=== PATIENT | female | born 1980 | race Caucasian/White ===

== ENCOUNTER 2017-05-09 19:01 | Emergency (ER) | payer OTHER ==
[2017-05-09 19:08] VITALS: BP 136/76; PULSE 81; TEMP 98; BMI 38.2
--- NOTE | 2017-05-09 20:46 | PDOC ---
History of Present Illness - General History Source: Patient Exam Limitations: No Limitations - History of Present Illness Initial Comments: 05/09/17 21:13 The patient is a 36-year-old female with a significant past medical history of gallstones, and presents to the emergency department with upper abdominal pain, nausea, and vomiting earlier today. She reports the abdominal pain was located across the upper abdomen, left more than right. She states the pain was severe, with associated episodes of nausea, non-bloody, non-bilious vomiting, and posterior shoulder pain. Upon interview, she states she does not have pain anymore but notes feeling gassy and bloated. She reports she has passed gas with moderate relief of pain. Patients last episode of pain secondary to gallstones was 2 years ago when she was . The patient denies chest pain, shortness of breath, headache and dizziness. The patient denies fever, chills, diarrhea and constipation. The patient denies dysuria, frequency, urgency and hematuria. Allergies: NKDA Past Surgical History: None reported Social History: No toxic habits reported PCP: Dr. Jennifer Veras <Elin Abrams - Last Filed: 05/09/17 21:12> <Bren Lynn - Last Filed: 05/09/17 22:46> - General Chief Complaint: Pain, Acute Stated Complaint: UPPER ABDOMINAL PAIN Time Seen by Provider: 05/09/17 20:43 Past History <Elin Abrams - Last Filed: 05/09/17 21:12> - Past Medical History Anemia: No Asthma: No Cancer: No Cardiac Disorders: No CVA: No COPD: No CHF: No Dementia: No Diabetes: No GI Disorders: Yes (GALLSTONES) Disorders: No HTN: No Hypercholesterolemia: No Liver Disease: No Seizures: No Thyroid Disease: No - Surgical History Abdominal Surgery: No Appendectomy: No Cardiac Surgery: No Cholecystectomy: No Lung Surgery: No Neurologic Surgery: No Orthopedic Surgery: No - Reproductive History (#): 2 Spontaneous : 1 - Immunization History Immunization Up to Date: Yes - Suicide/Smoking/Psychosocial Hx Smoking Status: No Smoking History: Never smoked Have you smoked in the past 12 months: No Number of Cigarettes Smoked Daily: 0 Hx Alcohol Use: No Drug/Substance Use Hx: No Substance Use Type: None Hx Substance Use Treatment: No <Bren Lynn - Last Filed: 05/09/17 22:46> - Past Medical History Allergies/Adverse Reactions: Allergies Allergy/AdvReac Type Severity Reaction Status Date / Time No Known Allergies Allergy Verified 05/09/17 19:08 Home Medications: Ambulatory Orders NK [No Known Home Medication] 11/23/15 Review of Systems - Review of Systems Able to Perform ROS?: Yes Comments:: 05/09/17 21:13 GENERAL/CONSTITUTIONAL: No fever or chills. No weakness. HEAD, EYES, EARS, NOSE AND THROAT: No change in vision. No ear pain or discharge. No sore throat. CARDIOVASCULAR: No chest pain or shortness of breath. RESPIRATORY: No cough, wheezing, or hemoptysis. GASTROINTESTINAL: (+) Abdominal pain. (+) Nausea. (+) Vomiting. No diarrhea or constipation. GENITOURINARY: No dysuria, frequency, or change in urination. MUSCULOSKELETAL: No neck or back pain. SKIN: No rash NEUROLOGIC: No headache, vertigo, loss of consciousness, or change in strength/ sensation. ENDOCRINE: No increased thirst. No abnormal weight change. HEMATOLOGIC/LYMPHATIC: No anemia, easy bleeding, or history of blood clots. ALLERGIC/IMMUNOLOGIC: No hives or skin allergy. <Elin Abrams - Last Filed: 05/09/17 21:12> *Physical Exam - Vital Signs Last Vital Signs Temp Pulse Resp BP Pulse Ox 98.0 F 81 26 H 136/76 100 05/09/17 19:05 05/09/17 19:05 05/09/17 19:05 05/09/17 19:05 05/09/17 19:05 - Physical Exam Comments: 05/09/17 21:13 GENERAL: Awake, alert, and fully oriented, in no acute distress HEAD: No signs of trauma EYES: PERRLA, EOMI, sclera anicteric, conjunctiva clear ENT: Auricles normal inspection, hearing grossly normal, nares patent, oropharynx clear without exudates. Moist mucosa NECK: Normal ROM, supple, no lymphadenopathy, JVD, or masses LUNGS: Breath sounds equal, clear to auscultation bilaterally. No wheezes, and no crackles HEART: Regular rate and rhythm, normal S1 and S2, no murmurs, rubs or gallops ABDOMEN: Soft, nontender, normoactive bowel sounds. No guarding, no rebound. No masses EXTREMITIES: Normal range of motion, no edema. No clubbing or cyanosis. No cords, erythema, or tenderness NEUROLOGICAL: Cranial nerves II through XII grossly intact. Normal speech, normal gait SKIN: Warm, Dry, normal turgor, no rashes or lesions noted. <Abrams,Elin - Last Filed: 05/09/17 21:12> - Vital Signs Last Vital Signs Temp Pulse Resp BP Pulse Ox 98.0 F 81 26 H 136/76 100 05/09/17 19:05 05/09/17 19:05 05/09/17 19:05 05/09/17 19:05 05/09/17 19:05 <Bren Lynn - Last Filed: 05/09/17 22:46> Procedures - Bedside Ultrasound Bedside Ultrasound: Gallbladder Remarks: 05/09/17 21:05 +gallstones, no gallbladder wall thickening (gb wall was 0.11cm), no pericholecystic fluid, neg sono murphys <Bren Lynn - Last Filed: 05/09/17 22:46> ED Treatment Course - LABORATORY CBC & Chemistry Diagram: 05/09/17 21:10 05/09/17 21:10 <Bren Lynn - Last Filed: 05/09/17 22:46> Medical Decision Making - Medical Decision Making 05/09/17 21:05 a/p: 36yo female with RUQ pain after eating dinner -hx of gallstones, suspect biliary colic. Pain resolved at this time -bedside ultrasound shows gallstones, but no acute addi -will check labs -pt with gas pain now, will give simethicone and reassess -no n/v at this time. no pain 05/09/17 22:41 re-eval: no abd pain. abd soft. discussed lab work with the patient. States she did drink a few beers over the weekend, but doesn't drink regularly. Discussed elevated WBC count and abnl lab findings. Elevated LFTs and alk phos. Discussed need for patient to have further eval and CT imaging, given bedside ultrasound shows stones but no acute addi. Pt states she cannot stay for further eval. Pt has kids at home and doesn 't have care for a further ED workup. Pt states she will call Dr. Veras for a follow up appt tomorrow. Discussed with the patient she will need to sign out AMA. Pt understands all lab results and need for further workup. Will give both GI and Sx for follow up along with Dr. Veras. Discussed all reasons to stay for further workup. Pt states she wants to sign out AMA. 05/09/17 22:43 Note: The patient insists on leaving the emergency dept and is signing out against medical advice. The patient understands the risks and complications that may result from the refusal of medical care and admission which includes and permanent disability. The patient has the mental capacity of understanding the risks of refusing care and is capable of making an informed decision. The patient was instructed to return to the emergency department should [] change [] mind regarding medical care or should [] condition worsen. The patient signed the Against Medical Advice form. <Bren Lynn - Last Filed: 05/09/17 22:46> *DC/Admit/Observation/Transfer - Attestations Scribe Attestion: 05/09/17 21:13 Documentation prepared by Elin Abrams, acting as medical illustrator for Bren Lynn DO. <Elin Abrams - Last Filed: 05/09/17 21:12> - Discharge Dispostion Admit: No - Attestations Physician Attestion: 05/09/17 22:46 I, Dr. Bren Lynn DO, attest that this document has been prepared under my direction and personally reviewed by me in its entirety. I further attest, that it accurately reflects all work, treatment, procedures and medical decision -making performed by me. <Bren Lynn - Last Filed: 05/09/17 22:46> Diagnosis at time of Disposition: Abdominal pain, Cholelithiasis, Nausea & vomiting, Leukocytosis - Discharge Dispostion Disposition: AGAINST MEDICAL ADVICE Condition at time of disposition: Unchanged/Unknown - Referrals Referrals: Jennifer Veras MD [Primary Care Provider] - Michele Meyers MD [Staff Physician] - Fuad Noble MD [Staff Physician] - - Patient Instructions Printed Discharge Instructions: DI for Abdominal Pain-Adult, Nausea and Vomiting-Adult, DI for Gallstones Additional Instructions: Please return to the ED tomorrow. Please follow up with Dr. Veras tomorrow if you don't return to the ED. Please also follow up with general surgery and GI for further eval. Please have your labs repeated. You had elevated LFTs and an elevated WBC count. Please return to the ED [facility] for further eval.
[2017-05-09] MEDS ORDERED: SIMETHICONE 80 MG TAB.CHEW (FP) PO ONE (20:53)
[2017-05-09 21:21] LABS: BASOPHIL 0.4 % (0-2.0); EOSINOPHIL 0.5 % (0-4.5); MCH 24.6 pg (25.7-33.7); MCHC 32.4 g/dl (32.0-36.0); MEAN PLT VOLUME 8.1 fl (7.5-11.1); NEUTROPHILS 85.7 % (42.8-82.8); PLATELET COUNT 345 K/MM3 (134-434); RDW 15.1 % (11.6-15.6); WHITE BLOOD COUNT 19.4 K/mm3 (4.0-10.0)
[2017-05-09 21:51] LABS: ALBUMIN 3.9 g/dl (3.4-5.0); ANION GAP 12 (8-16); BILIRUBIN,TOTAL 0.3 mg/dL (0.2-1.0); CALCIUM 8.8 mg/dL (8.5-10.1); CO2 22 mmol/L (21-32); CREATININE 0.9 mg/dL (0.55-1.02); GLUCOSE,RANDOM 131 mg/dL (74-106); SGPT/ALT 80 U/L (12-78); TOT PROT 7.7 g/dl (6.4-8.2)
[2017-05-09 21:54] LABS: ALK PHOS 166 U/L (45-117)
[2017-05-09 21:55] LABS: SGOT/AST 135 U/L (15-37)
== END 2017-05-09 23:16 | disposition home or self-care (01) ==
LOC: JER 19:01
DX: K80.20 Calculus of gallbladder without cholecystitis without obstruction (principal); D72.829 Elevated white blood cell count, unspecified
CPT/HCPCS: 36415; 80053; 83690; 84702; 85025; 99281-25

== ENCOUNTER 2018-03-20 12:45 | Emergency (ER) | payer OTHER ==
--- NOTE | 2018-03-20 12:53 | PDOC ---
History of Present Illness - General Chief Complaint: Pain Stated Complaint: LEFT ELBOW PAIN X 1 WEEK - History of Present Illness Initial Comments: Kimberly Grove is a 37yo otherwise healthy woman who presents with one week of worsening left elbow stiffness and pain. She reports that she has had left elbow pain for one week. She states that for the first 2-3 days it was merely uncomfortable, but starting on had worsened to the point that she had difficulty moving her left arm. The pain has continued to worsen over the past several days. At this point, Ms Grove feels that her left elbow ROM is significantly limited by pain. She has tried 400mg ibuprofen at home without improvement, though she does notice a reduction in pain and stiffness by using Icy-Hot patches and soaking her elbow in hot water. Ms Grove does not remember any significant injury, though she does feel that she may have hit her elbow against the wall while sleeping last week. She has not noticed any visible injury, swelling, redness, or bruising. She denies fevers or chills, has not had a previous elbow injury or elbow surgery, and has no family history of RA or other joint disease. Past History - Past Medical History Allergies/Adverse Reactions: Allergies Allergy/AdvReac Type Severity Reaction Status Date / Time No Known Allergies Allergy Verified 03/20/18 12:52 Home Medications: Ambulatory Orders NK [No Known Home Medication] 11/23/15 Anemia: No Asthma: No Cancer: No Cardiac Disorders: No CVA: No COPD: No CHF: No Dementia: No Diabetes: No GI Disorders: Yes (GALLSTONES) Disorders: No HTN: No Hypercholesterolemia: No Liver Disease: No Seizures: No Thyroid Disease: No - Surgical History Abdominal Surgery: No Appendectomy: No Cardiac Surgery: No Cholecystectomy: No Lung Surgery: No Neurologic Surgery: No Orthopedic Surgery: No - Reproductive History (#): 2 Spontaneous : 1 - Immunization History Immunization Up to Date: Yes - Suicide/Smoking/Psychosocial Hx Smoking Status: No Smoking History: Never smoked Have you smoked in the past 12 months: No Number of Cigarettes Smoked Daily: 0 Hx Alcohol Use: No Drug/Substance Use Hx: No Substance Use Type: None Hx Substance Use Treatment: No Review of Systems - Review of Systems Comments:: General: No fevers, no chills, no weight or appetite change, no malaise HEENT: No changes in vision, no changes in hearing, no congestion, no sore throat CV: No chest pain, no palpitations, no LE edema Pulm: No SOB, no cough, no wheezing GI: No nausea or vomiting, no change in bowel habits, no melena : No frequency, no urgency, no dysuria Musc: No back pain, no joint swelling, no recent injury. See HPI Skin: No rash, no lesions, no erythema Endo: No excessive thirst, no heat/cold intolerance Heme: No unusual bruising or bleeding, no swollen glands Neuro: No syncope, no numbness/tingling, no focal weakness Vasc: No claudication Psych: No recent change in mood, no SI or HI *Physical Exam - Physical Exam Comments: General: Comfortable, no acute distress HEENT: PERRL, EOMI, MMM, voice normal, normal neck ROM, no LAD Cards: RRR, no murmur appreciated Pulm: Comfortable on room air, clear to auscultation bilaterally Abd: Soft, nontender, nondistended Ext: Atraumatic. No LE edema. Strength 5/5 and equal bilaterally. LUE with no erythema, edema, or ecchymosis. Passive ROM at left elbow intact, but active ROM limited by pain. TTP at posterior L elbow just proximal to joint. No tenderness along radial head or other bony prominences. Vasc: Extremities WWP. Palpable radial and pedal pulses bilaterally Neuro: A&Ox3, CN grossly intact, normal speech, motor/sensory grossly intact and symmetric Psych: Mood appropriate to situation Medical Decision Making - Medical Decision Making 03/20/18 14:09 Kimberly Grove is an otherwise healthy 37yo woman who presents with worsening left elbow pain and stiffness for one week. - No history of trauma, surgery, prior injury, or family history of joint disease. Low suspicion for fracture, but will rule out with xray - No swelling, redness, significant tenderness, fevers/chills that suggest infection - Most likely musculoskeletal in nature - no s/s suggesting more serious pathology. 03/20/18 14:58 - Xray suggests an old avulsion fracture. No acute fracture noted - Will discharge home with sling, NSAIDs, ortho follow up - Discussed with Ms Grove, agrees with this plan *DC/Admit/Observation/Transfer Diagnosis at time of Disposition: Elbow pain, left - Discharge Dispostion Disposition: HOME Condition at time of disposition: Good - Referrals Referrals: Jennifer Veras MD [Primary Care Provider] - Bartolome Easton MD [Staff Physician] - - Patient Instructions Printed Discharge Instructions: DI for Avulsion Fracture Additional Instructions: Discharge Instructions: - You were seen in the ED for elbow pain - An xray showed a small fracture called an "avulsion fracture" which occurs when a small chip is pulled off the bone. This fracture shows some healing and likely occurred in the past. However, there is probably inflammation at this site that is causing your pain. - You should keep your elbow immobilized in the sling provided. - Elevate your arm as much as possible - Use ibuprofen (Advil, Motrin) 600mg every 6-8 hours as needed for pain. Please take ibuprofen with food to prevent upset stomach - Follow up with orthopedics within the next week for additional evaluation - Post Discharge Activity Forms/Work/School Notes: Back to Work
[2018-03-20 12:57] VITALS: BP 114/73; PULSE 74; TEMP 98.6; BMI 37.1
--- NOTE | 2018-03-20 13:23 | PDOC ---
Attending Attestation - Resident Resident Name: Sheri Wright - ED Attending Attestation I have performed the following: I have examined & evaluated the patient, The case was reviewed & discussed with the resident, I agree w/resident's findings & plan, Exceptions are as noted - HPI HPI: 03/20/18 15:00 Left elbow pain, localized just proximal to the olecranon posteriorly, point tenderness to palpation. No definite trauma, the patient says she may have banged her elbow on the wall while asleep. No distal numbness tingling pain or weakness in the forearm or hand. No fever/chills or other systemic symptoms - Physicial Exam PE: 03/20/18 15:02 Point tenderness just proximal to the elbow, distal upper arm. No swelling, effusion, erythema, warmth, or limited range of motion. Pulses full and no distal sensory deficits. - Medical Decision Making 03/20/18 15:02 Assessment: X-ray shows some old calcifications, either an old avulsion fracture or calcific tendinitis at the site of tenderness. Discussed with radiologist. Highly unlikely that this is an acute fracture, but may be an acute inflammation in the area chronic calcification Plan: Sling for comfort. Rest ice and anti-inflammatory. Follow-up orthopedist for further evaluation, treatment, and consider physical therapy. Fully ambulatory and in no significant distress upon discharge to follow-up as directed
== END 2018-03-20 15:07 | disposition home or self-care (01) ==
LOC: FER 12:45
DX: M25.522 Pain in left elbow (principal)
CPT/HCPCS: 73070-TC-LT-FY; 84703; 99282-25